=== PATIENT | male | born 1985 ===

== ENCOUNTER 2021-04-08 17:07 | Emergency (ER) | payer SELFPAY ==
[2021-04-08 22:03] LABS: Basophils # (Auto) 0.1 K/mm3 (0.0-0.1); Basophils % (Auto) 0.3 % (0.0-1.8); Eosinophils % (Auto) 0.2 % (0.0-4.3); Hematocrit 50.3 % (35.5-45.6); Hemoglobin 16.9 gm/dl (11.8-15.2); Lymphocytes # (Auto) 1.8 K/mm3 (1.2-5.4); Mean Corpuscular HGB Conc 34 % (32-34); Mean Corpuscular Volume 90 fl (84-94); Monocytes # (Auto) 1.1 K/mm3 (0.0-0.8); Monocytes % (Auto) 6.1 % (0.0-7.3); Platelet Count 366 K/mm3 (140-440); Red Blood Count 5.59 M/mm3 (3.65-5.03); Red Cell Distribution Width 13.4 % (13.2-15.2)
[2021-04-08 22:06] LABS: Alanine Aminotransferase 62 units/L (7-56); Albumin 4.6 g/dL (3.9-5); Blood Urea Nitrogen 9 mg/dL (9-20); Calcium 9.9 mg/dL (8.4-10.2); Hemolysis Index 28
[2021-04-08 22:09] LABS: BUN/Creatinine Ratio 13
--- NOTE | 2021-04-09 03:19 | Emergency Department Report ---
ED Abdominal Pain HPI - General Chief Complaint: Abdominal Pain Stated Complaint: ABD PAIN Time Seen by Provider: 04/09/21 03:07 Source: patient Mode of arrival: Ambulatory Limitations: No Limitations - History of Present Illness Initial Comments: 36-year-old male with my department complaining of 2-day history of right-sided abdominal pain which radiates from the flank associated with dysuria increased urinary urgency. Reports no vomiting, no diarrhea, no fever, chills, sweats no chest pain, no palpitations, no trauma. MD Complaint: abdominal pain -: Gradual Migration to: no migration Quality: aching, sharp Consistency: intermittent Improves With: nothing Worsens With: nothing Associated Symptoms: denies: vomiting, diarrhea, constipation, dysuria, hematemesis, hematuria, anorexia, syncope - Related Data Previous Rx's Medication Instructions Recorded Last Taken Type Ciprofloxacin HCl 500 mg PO BID #14 tablet 04/09/21 Unknown Rx Allergies Allergy/AdvReac Type Severity Reaction Status Date / Time No Known Allergies Allergy Unverified 04/08/21 21:39 ED Review of Systems ROS: Stated complaint: ABD PAIN Other details as noted in HPI Comment: All other systems reviewed and negative ED Past Medical Hx - Past Medical History Previous Medical History?: No - Surgical History Past Surgical History?: No - Medications Home Medications: Home Medications Medication Instructions Recorded Confirmed Last Taken Type Ciprofloxacin HCl 500 mg PO BID #14 tablet 04/09/21 Unknown Rx ED Physical Exam - General Limitations: No Limitations General appearance: alert, in no apparent distress - Head Head exam: Present: atraumatic, normocephalic - Eye Eye exam: Present: normal appearance - ENT ENT exam: Present: mucous membranes moist - Neck Neck exam: Present: normal inspection - Respiratory Respiratory exam: Present: normal lung sounds bilaterally. Absent: respiratory distress - Cardiovascular Cardiovascular Exam: Present: regular rate, normal rhythm. Absent: systolic murmur, diastolic murmur, rubs, gallop - GI/Abdominal GI/Abdominal exam: Present: soft, tenderness (Right hypochondriac region. No Mcdaniels sign, no tenderness at McBurney's. Abdomen is soft nondistended. Right CVA tenderness with palpation), normal bowel sounds. Absent: organomegaly, ma ss, bruit, pulsatile mass - Rectal Rectal exam: Present: deferred - Extremities Exam Extremities exam: Present: normal inspection, normal capillary refill - Back Exam Back exam: Present: normal inspection, CVA tenderness (R). Absent: CVA tenderness (L) - Neurological Exam Neurological exam: Present: alert, oriented X3, CN II-XII intact - Psychiatric Psychiatric exam: Present: normal affect, normal mood - Skin Skin exam: Present: warm, dry, intact, normal color. Absent: rash ED Course Vital Signs 04/08/21 21:32 Temperature 99.7 F H Pulse Rate 95 H Respiratory 18 Rate Blood Pressure 149/93 O2 Sat by Pulse 97 Oximetry ED Medical Decision Making - Lab Data Result diagrams: 04/08/21 21:39 04/08/21 21:39 - Radiology Data Radiology results: report reviewed [facility], [place] [address] [place] [address] Cat Scan Report Signed Patient: ALOK RAM R#: [id number] : 1985 Acct:[id number] Age/Sex: 36 / M ADM Date: 04/08/21 Loc: ED Attending Dr: Ordering Physician: FRANCISCA BRYANT Date of Service: 04/09/21 Procedure(s): CT abdomen pelvis wo con Accession Number(s): [id number] cc: FRANCISCA BRYANT CT ABDOMEN AND PELVIS WITHOUT CONTRAST INDICATION / CLINICAL INFORMATION: RIGHT flank / abdomen and RIGHT pelvic pain with dysuria. TECHNIQUE: Axial CT images were obtained through the abdomen and pelvis without IV contrast. All CT scans at this location are performed using CT dose reduction for ALARA by means of automated exposure control. COMPARISON: None available. FINDINGS: LOWER CHEST: No significant abnormality. LIVER: No significant abnormality. GALLBLADDER: No significant abnormality. BILE DUCTS: No significant abnormality. PANCREAS: No significant abnormality. SPLEEN: No significant abnormality. ADRENALS: No significant abnormality. RIGHT KIDNEY / URETER: Mild inflammation adjacent to the right ureter without dilatation. LEFT KIDNEY / URETER: No significant abnormality. STOMACH / SMALL BOWEL: No significant abnormality. COLON: No significant abnormality. APPENDIX: No significant abnormality. PERITONEUM: No free fluid. No free air. No fluid collection. LYMPH NODES: No significant adenopathy. VASCULAR STRUCTURES: No significant abnormality. URINARY BLADDER: No significant abnormality. REPRODUCTIVE ORGANS: No significant abnormality. ADDITIONAL FINDINGS: Multiple fat-containing umbilical hernia. SKELETAL SYSTEM: No significant abnormality. IMPRESSION: Mild inflammation adjacent to the right ureter without dilatation. Infection versus recently passed stone. Signer Name: Hansel Avitia MD Signed: 04/09/2021 4:22 AM Workstation Name: [id number] Transcribed By: NAT Dictated By: Hansel Avitia MD Electronically Authenticated By: Hansel Avitia MD Signed Date/Time: 04/09/21421 DD/ 2 TD/TT: - Medical Decision Making This patient presents with abdominal pain secondary to a urinary etiology. A CT scan was performed to evaluate for potential causes of the abdominal pain, however, neither the clinical exam nor the CT has identified an emergent etiology for the abdominal pain. CT scan the symptoms are likely urinary issues without laboratory ureters which were suggestive of a pass kidney stone I have a very low suspicion for appendicitis, ischemic bowel, bowel perforation, or any other life threatening disease. I have discussed with the patient the level of uncertainty with undifferentiated abdominal pain and clearly explained the need to follow-up as noted on the discharge instructions, or return to the Emergency Department immediately if the pain worsens, develops fever, persistent and uncontrollable vomiting, or for any new symptoms or concerns. Critical care attestation.: If time is entered above; I have spent that time in minutes in the direct care of this critically ill patient, excluding procedure time. ED Disposition Clinical Impression: Dysuria, Kidney stones Disposition: 01 HOME / SELF CARE / HOMELESS Is pt being admited?: No Does the pt Need Aspirin: No Condition: Stable Instructions: Dysuria, Kidney Stones, Low-Purine Eating Plan Additional Instructions: Given evaluate emergency department today for abdominal pain. Evaluation has shown evidence of an emergent medical condition requiring emergent intervention at this time. Your evaluation and CT scan were suspicious for a past kidney stone and likely evolution of a evolving infection. Please schedule appointment with your physician for follow-up within the next 2 to 2 to 3 days. Return to emergency department you experience any worsening uncontrolled pain, fevers of 100.4 or greater, recurrent vomiting, inability to tolerate food or liquids by mouth, bloody stools or vomiting, bloody urine, any other symptoms to suggest that your condition is worsening Prescriptions: Ciprofloxacin HCl 500 mg PO BID #14 tablet
--- NOTE | 2021-04-09 04:26 | Cat Scan Report ---
CT ABDOMEN AND PELVIS WITHOUT CONTRAST INDICATION / CLINICAL INFORMATION: RIGHT flank / abdomen and RIGHT pelvic pain with dysuria. TECHNIQUE: Axial CT images were obtained through the abdomen and pelvis without IV contrast. All CT scans at this location are performed using CT dose reduction for ALARA by means of automated exposure control. COMPARISON: None available. FINDINGS: LOWER CHEST: No significant abnormality. LIVER: No significant abnormality. GALLBLADDER: No significant abnormality. BILE DUCTS: No significant abnormality. PANCREAS: No significant abnormality. SPLEEN: No significant abnormality. ADRENALS: No significant abnormality. RIGHT KIDNEY / URETER: Mild inflammation adjacent to the right ureter without dilatation. LEFT KIDNEY / URETER: No significant abnormality. STOMACH / SMALL BOWEL: No significant abnormality. COLON: No significant abnormality. APPENDIX: No significant abnormality. PERITONEUM: No free fluid. No free air. No fluid collection. LYMPH NODES: No significant adenopathy. VASCULAR STRUCTURES: No significant abnormality. URINARY BLADDER: No significant abnormality. REPRODUCTIVE ORGANS: No significant abnormality. ADDITIONAL FINDINGS: Multiple fat-containing umbilical hernia. SKELETAL SYSTEM: No significant abnormality. IMPRESSION: Mild inflammation adjacent to the right ureter without dilatation. Infection versus recen tly passed stone. Signer Name: Hansel Avitia MD Signed: 04/09/2021 4:22 AM Workstation Name: [id number]
[2021-04-09 08:23] VITALS: BP 148/90
== END 2021-04-09 08:10 | disposition home or self-care (01) ==
LOC: ED 17:07
DX: N20.0 Calculus of kidney (principal); R30.0 Dysuria; Z79.899 Other long term (current) drug therapy
CPT/HCPCS: 36415; 74176; 80053; 83690; 85025